=== PATIENT | male | born 1945 | race Caucasian/White ===

== ENCOUNTER 2023-09-04 06:52 | Outpatient (RCR) | payer MEDICARE, SELFPAY ==
[2023-09-04] VITALS (9 sets, daily range): BP systolic 113–128; BP diastolic 56–67; PULSE 76–83; RESP 16; TEMP 36.2–36.7; O2SAT 97–99; BMI 97.3
[2023-09-04 07:43] LABS: Hemoglobin 6.9 g/dL (14.0-18.0)
[2023-09-04] MEDS: SODIUM CHLORIDE 0.9% IV 250 ML 30 ML IV CONT (09:20)
[2023-09-04] MEDS: FUROSEMIDE INJ 40 MG/4 ML VIAL 20 MG IV PUSH (12:12)
== END 2023-12-03 23:59 | disposition home or self-care (01) ==
LOC: ANHCPCTRAN 06:52
PROVIDERS: PCP Internal Medicine; Visit Provider Internal Medicine
DX: D64.9 Anemia, unspecified (principal)
CPT/HCPCS: 36415; 36430; 85014; 85018; 86850; 86900; 86901; 86923; 96374; J1940; J7050; P9016